=== PATIENT | male | born 1975 | race African-American/Black ===

== ENCOUNTER 2019-12-15 14:52 | Emergency (ER) | payer MEDICAID ==
[~2019-12-15] VITALS: Ht 170.2 cm; Wt 72.7 kg
[2019-12-15] MEDS ORDERED: DIPH25CA85 PO (14:59)
[2019-12-15 15:43] VITALS: BP 160/94
[2019-12-15] MEDS ORDERED: IBUPROFEN 600 MG TABLET PO ONE (15:45)
[2019-12-15] MEDS ORDERED: AMOX TR/POT CLAV 875 MG/125 MG TABLET PO ONE (15:45)
== END 2019-12-15 15:58 | disposition home or self-care (01) ==
LOC: EDUNIT# 14:52 → EMS 15:22
DX: K04.7 Periapical abscess without sinus (principal); J45.909 Unspecified asthma, uncomplicated; F12.90 Cannabis use, unspecified, uncomplicated

== ENCOUNTER 2022-11-05 06:09 | Emergency (ER) | payer MEDICAID ==
[~2022-11-05] VITALS: Ht 170.2 cm; Wt 79.5 kg
[~2022-11-05 06:09] MED LIST: DIPH25CA85 PO
[2022-11-05 06:14] VITALS: TEMP 98
[2022-11-05] MEDS ORDERED: PENICILLIN V POTASSIUM 500 MG TABLET PO ONE (07:00)
[2022-11-05] MEDS ORDERED: IBUPROFEN 600 MG TABLET PO ONE (07:00)
[2022-11-05] MEDS ORDERED: CefTRIAXone 1 GM/DEXTROSE 50 ML IV ONE (09:00)
[2022-11-05] MEDS ORDERED: IBUP-1492 PO (10:19)
[2022-11-05] MEDS ORDERED: PENI500T2 PO (10:19)
[2022-11-05] MEDS ORDERED: PERCT PO (10:20)
[2022-11-05 11:22] VITALS: BP 159/112; PULSE 72; RESP 15
== END 2022-11-05 11:40 | disposition home or self-care (01) ==
LOC: EMS 06:10
DX: K12.2 Cellulitis and abscess of mouth (principal); K02.9 Dental caries, unspecified; J45.909 Unspecified asthma, uncomplicated
CPT/HCPCS: 99285; 96365; 70486; J0696